=== PATIENT | male | born 1945 | race Caucasian/White ===

== ENCOUNTER → 2018-04-28 | Outpatient (CLI) | payer OTHER ==
[~2018-04-28] MED LIST: ADVAIR 100-501 EACH INH; ASPIRIN EC81 M1 PO; IMURAN 50MG TAB50 M1 PO; LIPITOR 40 MG T40 M1 PO; LOPRESSOR25 PO; PREDNISONE 5 MG5 M1 PO; SANDIMMUNE100 MG PO; THERA-M CAPLET1 EACH PO
== END ==
LOC: NUC 07:41
DX: I25.10 Atherosclerotic heart disease of native coronary artery without angina pectoris (principal); Z95.5 Presence of coronary angioplasty implant and graft